=== PATIENT | male | born 1955 | race Caucasian/White ===

== ENCOUNTER → 2017-06-30 | Outpatient (CLI) | payer OTHER ==
[~2017-06-30] MED LIST: ALEVE220 MG PO; COLACE100 MG PO; COZAAR 25 MG TA25 M2 PO; HYDROCODON-ACE1 EAC7 PO; LOPRESSOR50 PO; PERCOCET PO; PRILOSEC 20 MG20 MG PO; XARELTO10 MG PO
== END ==
LOC: M.MRI 07:46
DX: S83.241A Other tear of medial meniscus, current injury, right knee, initial encounter (principal); M17.11 Unilateral primary osteoarthritis, right knee; M25.461 Effusion, right knee; X58.XXXA Exposure to other specified factors, initial encounter; Y93.89 Activity, other specified; Y92.89 Other specified places as the place of occurrence of the external cause; Y99.8 Other external cause status

== ENCOUNTER 2017-07-06 08:00 | Inpatient (IN) | payer OTHER ==
[~2017-07-06] VITALS: Ht 195.6 cm; Wt 108.9 kg
[~2017-07-06 08:00] MED LIST changes: -COLACE100 MG PO; -PERCOCET PO; -XARELTO10 MG PO
[2017-07-06 09:02] LABS: HEMATOCRIT 41.7 % (42.0-52.0); HEMOGLOBIN 14.4 gm/dL (14.0-18.0); MCH 32.1 pg (26.0-34.0); MCHC 34.6 g/dL (28.0-37.0); MCV 92.7 fL (80.0-100.0); RBC 4.5 mil/uL (4.50-6.00); RDW-CV 12.3 % (10.5-14.5); WBC 9.3 thou/uL (4.0-11.0)
[2017-07-06 09:11] LABS: INR 1.1; PROTIME 10.7 Seconds (9.20-11.50)
[2017-07-06 09:13] LABS: ALBUMIN 4.3 g/dL (3.4-5.0); POTASSIUM 3.8 mmol/L (3.5-5.1); TOTAL BILIRUBIN 0.5 mg/dL (<0.1-1.0); TOTAL PROTEIN 7.6 g/dL (6.4-8.2)
[2017-07-06 09:57] LABS: URINE BILIRUBIN NEGATIVE (Negative); URINE BLOOD NEGATIVE (Negative); URINE CLARITY CLEAR; URINE COLOR YELLOW; URINE GLUCOSE-RANDOM NEGATIVE (Negative); URINE KETONES NEGATIVE (Negative); URINE LEUKOCYTES-REFLEX NEGATIVE (Negative); URINE NITRITE-REFLEX NEGATIVE (Negative); URINE PROTEIN NEGATIVE (Negative); URINE SPECIFIC GRAVITY >= 1.030 (1.005-1.030); URINE UROBILINOGEN 0.2 E.U./dl (0.2-1.0)
[2017-07-06 10:56] LABS: CRYSTALS None Seen /LPF (None Seen)
[2017-07-18 11:52] VITALS: BP 127/84
[2017-07-18 15:45] VITALS: BP 145/73
[2017-07-18 20:20] VITALS: BP 138/82
[2017-07-19 00:21] VITALS: BP 118/75
[2017-07-19 04:21] LABS: HEMATOCRIT 39.3 % (42.0-52.0); HEMOGLOBIN 13.2 gm/dL (14.0-18.0)
[2017-07-19 07:45] VITALS: BP 110/57
[2017-07-19 16:37] VITALS: BP 113/60
[2017-07-19 20:45] VITALS: BP 129/63
[2017-07-20 04:00] VITALS: BP 112/73
[2017-07-20 04:21] LABS: HEMATOCRIT 34.5 % (42.0-52.0)
[2017-07-20 08:00] VITALS: BP 121/62
[2017-07-20 16:21] VITALS: BP 129/55
[2017-07-20 20:20] VITALS: BP 103/65
[2017-07-20 23:57] VITALS: BP 117/51
[2017-07-21 03:47] VITALS: BP 105/61
[2017-07-21] MEDS ORDERED: PERCOCET PO (10:17)
[2017-07-21 10:18] VITALS: BP 125/47
[2017-07-21] MEDS ORDERED: XARELTO10 MG PO (10:22)
[2017-07-21] MEDS ORDERED: COLACE100 MG PO (10:23)
[2017-07-21 21:21] VITALS: BP 117/61
[2017-07-22 03:30] VITALS: BP 107/59
[2017-07-22 08:21] VITALS: BP 109/57
[2017-07-22 11:19] VITALS: BP 125/47
[2017-07-22 11:22] VITALS: BP 125/47
[2017-07-22 12:27] VITALS: BP 125/47
--- NOTE | 2017-08-01 11:47 | OP ---
[address] [address] OPERATIVE REPORT Name: DIMAS CASTELAN Room: [address]#: [id number] Admission: 07/18/17 Attend Phys: Mayco Zamora Discharge: 07/22/17 Date of : 55 Report #: [id number] THIS REPORT FOR: //name// CC: Chris Coppola DATE OF SERVICE: 07/18/2017 PREOPERATIVE DIAGNOSIS: Right knee osteoarthritis. POSTOPERATIVE DIAGNOSIS: Right knee osteoarthritis. PROCEDURE: Right total knee arthroplasty. SURGEON: Haider Walton II, DO ENERGY SYSTEMS ENGINEER: PAM Neil ANESTHESIA: General endotracheal. ESTIMATED BLOOD LOSS: 50 mL. ANTIBIOTICS: Ancef preoperatively. DRAINS: Medium Hemovac. COMPLICATIONS: None. DISPOSITION: Stable to recovery room. IMPLANTS: Listed in the operative record and progress note. BRIEF HISTORY: The patient was taken to the preoperative area. Preoperative H and P was performed. Site was marked, questions were answered. The risks and benefits were discussed with the patient in detail about surgery. The patient understood all risks and wished to proceed. OPERATIVE PROCEDURE: The patient was taken to the operative suite and placed supine on the operating table under appropriate anesthesia. A well-padded tourniquet applied to the upper thigh, which was inflated to 300 mmHg after gravity exsanguination. The operative knee was sterilely prepped and draped. Surgery began by midline incision and was carried down to subcutaneous tissues. A medial parapatellar arthrotomy was performed and carried down to bone. The patella was then everted and excess soft tissue removed on the femur. Femoral cutting block was then applied and checked with a drop shilpa for rotational [facility] [address] [place] [address] OPERATIVE REPORT Name: ANNELISEDIMAS L Room: [address]#: [id number] Admission: 07/18/17 Attend Phys: Mayco Zamora Discharge: 07/22/17 Date of : 55 Report #: [id number] alignment and pinned in appropriate position and appropriate cut was made. A 4-in-1 cutting block was then applied, checked for rotational alignment, pinned in appropriate position and appropriate cuts were made. The tibia was then exposed. The excess meniscus was removed. Retractor was placed on the collateral ligaments. The tibial cutting block was then applied, pinned in appropriate position, checked with drop shilpa for rotational alignment and slope and appropriate cut was made. The tibial bone was removed. Tibial base plate was then applied, checked for rotational alignment with the drop shilpa and pinned in appropriate position. The femur was then applied and box cut was reamed. This was trialed with appropriate spacer which showed excellent fit and fill and excellent stability throughout all range of motion. The patella was then reamed in appropriate fashion and sized to appropriate size. Three peg holes were drilled. The knee was then trialed and shown to have excellent flexion, extension, excellent tracking of the patella within the groove. These trials were removed. The tibia was punched in appropriate fashion. Bone ends was cleansed with Pulsavac irrigation and the cement was mixed and applied to the final implants. These were then malleted into position and held the knee in extension and compressed to allow the cement to cure. After it cured, the excess was removed utilizing a [place] and osteotome. The wound was then copiously irrigated and the final spacer was then malleted in position. The tourniquet was deflated. Hemostasis was maintained with electrocautery. The pain cocktail was injected. PRP gel was sprayed throughout the internal aspects of the knee. A medium Hemovac drain was then applied. The capsule was closed with #2 FiberWire and 1 Vicryl in [id number] fashion. Skin was closed with 2-0 Vicryl and running 3-0 Monocryl. Dermabond and sterile dressing applied. Curtis wrap and PolarCare applied. The patient transported to recovery room in stable condition. Counts were correct throughout the procedure. <ELECTRONICALLY SIGNED> By: Haider Walton II, DO 08/01/17 [id number] [id number] Walton II, DO /nt
--- NOTE | 2017-08-18 10:08 | PATH ---
[address] [address] PATHOLOGY RPT PROCEDURE Name: DIMAS CORREA Se Room: [address] IN ..#: [id number] Admission: 07/18/17 Date of : 55 Discharge: 07/22/17 Report #: [id number] Path Case #: [id number] [facility] Accession Number: [id number] . 01 Material submitted: . RIGHT KNEE BONE AND TISSUE . 01 Clinical history: . Right knee degenerative joint disease . 02 Diagnosis: Right knee bone and tissue, total knee replacement: - Benign synovium and meniscus and benign bone and cartilage with severe degenerative changes. (BONY:mgr; 07/20/17) QRQ/07/20/2017 . 02 Electronically signed: . Malivn Burnham MD, Pathologist NPI- [id number] . 01 Gross description: . Received in formalin labeled "Dimas Correa, right knee bone and tissue," are multiple segments of bone, including tibial plateau, measuring 13.4 x 12.8 x 2.8 cm in aggregate dimensions. Soft tissue and meniscus are present. The specimen displays focal eburnation of the articular surfaces. [employer] Operator bone and soft tissue are submitted in cassette A1, following decalcification. (DAC; 07/19/2017) XDC/XDC . 02 CPT . 761983, [id number] Performed at: 01 [facility] [address], [place] [id number] MD Darius Boogie MD Phone: [phone] Performed at: 02 [facility] [address], [place], [place] [id number] MD Malvin Burnham MD Phone: [phone]
== END 2017-07-22 12:27 | DRG 470 ==
LOC: M.PRE → M.LAB 08:00 → M.PRE 07-18 07:46 → EDSTATUS 07-18 09:52 → M.PRE 07-18 09:57 → M.ORTHSURG 07-18 09:57 → M.TBA 07-18 10:16 → M.ORTHSURG 07-18 10:16 → M.PRE 07-18 10:29 → M.ORTHSURG 07-18 15:16
PROVIDERS: Orthopaedic Surgery; ADMIT Internal Medicine
PROC: 0SRC0J9 Replacement of Right Knee Joint with Synthetic Substitute, Cemented, Open Approach (ICD-10-PCS; principal; 2017-07-18)
DX: M17.11 Unilateral primary osteoarthritis, right knee (principal); I10 Essential (primary) hypertension; Z90.49 Acquired absence of other specified parts of digestive tract; K21.9 Gastro-esophageal reflux disease without esophagitis; Z79.899 Other long term (current) drug therapy